=== PATIENT | male | born 1995 | race Caucasian/White ===

== ENCOUNTER 2019-05-08 16:31 | Emergency (ER) | payer OTHER, SELFPAY ==
[2019-05-08 16:32] VITALS: BP 131/73; PULSE 95; RESP 16; TEMP 36.9; O2SAT 98; BMI 24.0
--- NOTE | 2019-05-08 16:43 | ED.DCSUM_ITS ---
History of Present Illness Chief Complaint: Male Pain/Injury Detail of Chief Complaint: Swollen painful right testicle/scrotum Onset: Yesterday Context: Sudden Onset Timing: Continuous Quality: Pain Location: Right testicle Current Severity: Mild Maximum Severity: Severe Worsened by: Movement Relieved by: Nothing Associated Symptoms: Dysuria and frequency 3 to 4 weeks ago Narrative: Patient is a 23-year-old male who presents because of pain and swelling of his scrotum. Patient denies fever, chills or night sweats. Patient states 3 to 4 weeks ago he had frequency and dysuria. He denies penile discharge. Denies penile lesion. He is reportedly in a monogamous relationship. He denies history of trauma. He also complains of swelling in the inguinal area. He has not taken anything for the discomfort. Prior similar symptoms: No Recent Illness/Hospitalization: No - Past Medical History (1) No significant past medical history Status: Acute Past Medical History - Allergies and Home Meds Allergies/Adverse Reactions: Allergies No Known Allergies Allergy (Verified 05/08/19 16:35) Primary Care Physician: NOT,DEFINED [NON-STAFF] - Prior records reviewed: No Past Medical History: None Surgical History: no surgical history Lives: Spouse/ Significant Other Smoking Status: Never smoker Drugs: None Review of Systems General: Denies: Chills, Fever, Malaise, Subjective, Sweats, Weight loss, - Eyes: Denies: Visual changes - bilaterally, Blurred Vision - bilaterally Gastrointestinal: Denies: Abdominal pain, Nausea, Vomiting, Diarrhea, Melena, Hematochezia Genitourinary: Reports: Dysuria, Frequency, - - Denies penile discharge or lesions.. Denies: Hematuria Musculoskeletal: Denies: Myalgias, Arthralgias, Neck pain, Back pain, Swelling, Extremity Pain, -, - Skin: Denies: Rash, Wounds Physical Exam Vital Signs/Narrative: Vital Signs Temp Pulse Resp BP Pulse Ox 05/08/19 16:32 98.5 F 95 16 131/73 H 98 Inital Vital Signs reviewed: Yes General: Well nourished, Well developed, No Acute Distress Head: Normocephalic, Atraumatic Eyes: Perrl, EOMI. Negative for: Pale conjunctiva, Scleral icterus ENT: Moist mucous membranes, No rhinorrhea, - - Right and left auditory canal are impacted with cerumen. Negative for: Nasal congestion, Sinus tenderness Neck: Supple, Nontender Cardiovascular: Regular rate, Regular rhythm, No murmurs, Normal S1, Normal S2, Bradycardia Respiratory: No distress, CTA bilaterally Abdomen: Soft, Nontender, Nondistended, Normal bowel sounds : - - Circumcised with no penile lesion or discharge. Right testicle is markedly swollen and tender with tenderness of the testicle and epididymis. There is no transillumination of light. There is right inguinal lymphadenopathy noted. There are no dermatologic lesions noted. Extremities: Nontender, No edema Skin: Normal color, No rash, No Trauma. Negative for: Cyanosis, Diaphoresis, Jaundice Neurological: Alert, Oriented x3, Cranial nerves II-XII grossly intact, Normal Strength, Normal Sensation Psychological: Normal affect, Normal Mood Diagnostic/Tx/Re-eval Laboratory Results 05/08/19 16:50 Urine Color Yellow Urine Clarity Clear Urine pH 6.5 Ur Specific [place] 1.010 Urine Protein Negative Urine Glucose (UA) Normal Urine Ketones Negative Urine Occult Blood Negative Urine Nitrite Negative Urine Bilirubin Negative Urine Urobilinogen Normal Ur Leukocyte Esterase 25 H Urine RBC 0 SEEN Urine WBC 0 SEEN Ur Squamous Epith Cells 0 SEEN Urine Bacteria 0 SEEN Urine Mucus 0 SEEN UA is unremarkable. PCR for GC and Chlamydia are pending. In light of patient's history of urinary symptoms 3 weeks ago and now orchitis/epididymitis will treat with doxycycline and NSAID. - Medical Decision Making UA was obtained as well as urine for GC and chlamydia. Plan will be to treat with anti-inflammatory and doxycycline. Patient has orchitis epididymitis. Determine if etiology is through STI versus other causes. ED Disposition - Plan for ED Patient: Disposition: Home or Assisted Living Diagnosis: Orchitis and epididymitis Instructions: Orchitis Prescriptions: Naproxen [Naprosyn] 500 mg PO BID #14 tab Transmission Status: Pending to [facility] Doxycycline [Vibramycin] 100 mg PO BID #30 cap Transmission Status: Pending to [facility] Referrals: NOT,DEFINED [NON-STAFF] - Yumiko Bender MD [STAFF PHYSICIAN] - 5-7 Days
[2019-05-08] MEDS: Naproxen 500 MG Tablet PO (16:52)
[2019-05-08 17:05] LABS: Bacteria 0 SEEN /hpf (None Seen); Mucous, Urine 0 SEEN /hpf (<or=2+); Red Blood Cells-Urine 0 SEEN /hpf (0-5); Squamous Epithelial Cells - UA 0 SEEN /hpf (0-5); White Blood Cells 0 SEEN /hpf (0-5)
[2019-05-08 17:10] LABS: Color, Urine Yellow (Yellow); Glucose, Dipstick Normal (Normal); Ketone-Dipstick Negative (Negative); Leukocyte Esterase-Dipstick 25 /ul (Negative); Nitrite-Dipstick Negative (Negative); Occult Blood-Urine Negative /ul (Negative); Protein-Dipstick Negative (Negative); Urine Bilirubin Dipstick Negative (Negative); Urine Clarity Clear (Clear); Urine Urobilinogen Normal (Normal); Urine pH 6.5 (5.0 - 8.0)
[2019-05-08] MEDS: Doxycycline 100 MG CAPSULE PO (18:29)
[2019-05-08 19:14] LABS: Neisserai gonorrhoeae by PCR Negative (Negative); Probe Check PASS
[2019-05-08 19:16] LABS: Chlamydia Trachomatis by PCR POSITIVE (Negative)
--- NOTE | 2019-05-08 19:40 | ED.RN ---
PATIENT INFORMED OF HIS TEST RESULTS
== END 2019-05-08 18:29 | disposition home or self-care (01) ==
PROVIDERS: Emergency Provider Emergency Medicine
DX: N45.3 Epididymo-orchitis (principal)
CPT/HCPCS: 81001; 87491; 87591; 99283